=== PATIENT | male | born 1990 | race Caucasian/White ===

== ENCOUNTER 2020-05-24 08:08 | Inpatient (IN) | payer OTHER ==
[2020-05-24] MEDS ORDERED: Lorazepam 2 MG/ML VIAL ONE ×2 (08:42→10:17)
--- NOTE | 2020-05-24 09:05 | RAD ---
Portable frontal chest radiograph: 05/24/2020 COMPARISON: 01/10/2019 HISTORY: Chest pain FINDINGS: Lungs are clear. Heart and mediastinal contours appear within normal limits. IMPRESSION: No acute findings.
[2020-05-24 09:09] LABS: ALT (SGPT) 40 U/L (8-55); AST (SGOT) 96 U/L (5-34); Albumin 4.2 g/dL (3.5-5.0); Alkaline Phosphatase 68 U/L (40-110); Anion Gap 17 mmol/L (10-20); BUN (Urea Nitrogen) 8 mg/dL (8.9-20.6); Bilirubin, Total 1.7 mg/dL (0.2-1.2); Calc. Creatinine Clearance 0 mL/min (70-130); Calcium 9.4 mg/dL (7.8-10.44); Carbon Dioxide 23 mmol/L (22-29); Chloride 97 mmol/L (98-107); Estimated GFR-MDRD 74; Globulin 3.2 g/dL (2.4-3.5); Glucose 162 mg/dL (70-105); Protein, Total 7.4 g/dL (6.0-8.3); Sodium 134 mmol/L (136-145)
[2020-05-24 09:10] LABS: #Basophils 0.1 thou/uL (0.0-0.2); #Eosinphils 0.1 thou/uL (0.0-0.7); #Lymphocytes 1.5 thou/uL (1.20-3.40); #Monocytes 0.6 thou/uL (0.11-0.59); #Neutrophils 3.7 thou/uL (1.40-6.50); %Basophils 0.9 % (0.0-1.0); %Eosinophils 2.2 % (0.0-10.0); %Lymphocytes 24.8 % (21.0-51.0); %Neutrophils 62.1 % (42.0-75.0); Hemoglobin 15.9 g/dL (14.0-18.0); Mean Corpuscular HGB CONC 34.8 g/dL (32.0-36.0); Mean Corpuscular Hemoglobin 31.3 pg (27.0-31.0); Mean Corpuscular Volume 89.9 fL (78.0-98.0); Mean Platelet Volume 7.9 fL (7.4-10.4); Platelet Count 80 thou/uL (130-400); Platelet Morphology Comment Appears Decreased; RBC Distribution Width 13.9 % (11.5-14.5); RBC Morphology Normal; Red Blood Cell (RBC) Count 5.09 mill/uL (4.70-6.10)
[2020-05-24 09:16] LABS: Acetaminophen Less than 6.0 mcg/mL (10.0-30.0); Alcohol Less than 10 mg/dL (Less than 10); Salicylate Less than 8.0 mg/dL (15.0-30.0)
[2020-05-24 09:28] LABS: Magnesium 0.9 mg/dL (1.6-2.6)
[2020-05-24] MEDS ORDERED: Multivitamins, Adult 10 ML, Thiamine HCl 100 MG, Folic Acid 1 MG in Dextrose 5 %-0.45 %... IV SCH (09:30)
[2020-05-24] MEDS ORDERED: Magnesium 2 GM/50 ML BAG (IN WATER) ONE ×2 (09:32→10:44)
[2020-05-24] MEDS ORDERED: Lorazepam 2 MG/ML VIAL SLOW IVP PRN (10:34)
[2020-05-24] MEDS ORDERED: Potassium Chloride 20 MEQ TAB ONE (10:44)
[2020-05-24 11:27] LABS: Amphetamine Not Detected (NotDetected); Barbiturates Screen Not Detected (NotDetected); Benzodiazepine Screen Not Detected (NotDetected); Cocaine Metabolite Screen Not Detected (NotDetected); Medtox Control Line Valid? VALID (VALID); Medtox Reader # READER 4; Methadone Not Detected (NotDetected); Methamphetamine Not Detected (NotDetected); Opiate Screen Not Detected (NotDetected); Oxycodone Screen Not Detected (NotDetected); Phencyclidine (PCP) Not Detected (NotDetected); THC/Cannabinoid Screen Not Detected (NotDetected); Tricyclic Screen Not Detected (NotDetected)
--- NOTE | 2020-05-24 12:27 | PDOC.HHP ---
Hospitalist HPI - History of Present Illness palpitations History of Present Illness: Mr. Perales is a 30 year-old male with a PMHx of PTSD, anxiety, alcohol dependence disorder, who presents for acute anxiety, palpitations, and chest pain. Pt reports that this morning while getting ready for work he experienced tremors, his heart skipping beats, and an intense feeling of anxiety. Pt normally consumes about 5 etoh drinks a day and stopped consuming etoh 48 hrs prior to admission. He denies any history of prior withdrawal symptoms, although admits he will sometimes get shaky and need a drink. Denies any history of seizures or prior hospitalizations for withdrawal. Pt denies SOB, neurologic deficits. Denies any cardiac history, but does note a family history significant for his father with an CA at age 45. Pt is a non-smoker. His medical care is thorough the [place] and does report that he has undergone a substance abuse program twice previously. He is open to options about substance abuse treatment. In the ED, initial vital signs 170/20, HR 138, RR 14, Temp 99.8, 96% on RA. Workup included EKG which showed sinus tachycardia, but no ischemic changes. Troponin was 0.022. Labs notable for Mg of 0.9, Na 134, K+ 3.0. BUN/Cr 8/1.14, t. bili 1.7, and AST/ALT 96/40. TSH wnl at 4.817. Pt received 2g of Mg, 40 meq of K, ativan 1 mg x2, and a banana bag in the ED. Pt appropriate for transfer to medical floor and admitted under hospital medicine. Hospitalist ROS - Review of Systems Constitutional: denies: fever, chills, sweats, weakness, malaise, other Eyes: denies: pain, vision change, conjunctivae inflammation, eyelid inflammation, redness, other ENT: denies: nose discharge, nose congestion, mouth pain, throat pain, throat swelling Respiratory: denies: cough, dry, shortness of breath, hemoptysis, SOB with excertion, pleuritic pain, sputum, wheezing, other Cardiovascular: reports: chest pain, palpitations. denies: orthopnea, paroxysmal noc. dyspnea, edema, light headedness, other Gastrointestinal: denies: nausea, vomiting, abdominal pain, diarrhea, constipation, melena, hematochezia, other Genitourinary: denies: dysuria, frequency, incontinence, hematuria, retention, other Musculoskeletal: denies: neck pain, shoulder pain, arm pain, back pain, hand pain, leg pain, foot pain, other Skin: denies: rash, lesions, priscilla, bruising, other Neurological: denies: weakness, numbness, incoordination, change in speech, confusion, seizures, other Other: anxiety - Medication Medications: Pt's home medications include: 1. Hydroxazine 50 mg BID PRN 2. Trazodone 100 mg QHS PRN 3. Pantoprazole 20 mg qd 4. Buproprion 300 mg daily In ED received: Drug Name Dose Ordered Route Status Time *magnesium sulfate in water 2 g IV Piggy Back Given 10:50 05/24/2020 potassium chloride oral 40 mEq Oral Given 10:50 05/24/2020 LORazepam injection 1 mg IV Push Given 10:23 05/24/2020 *BANANA BAG 1 L IV Fluid Infusion Given 10:02 05/24/2020 *sodium chloride 0.9 % intravenous 1 L IV Fluid Infusion Given 10:01 05/24/2020 *magnesium sulfate in water 2 g IV Piggy Back Given 10:00 05/24/2020 LORazepam injection 1 mg IV Push Given 09:00 Hospitalist History - Past Medical History Cardiac: reports: no pertinent history Pulmonary: reports: no pertinent history [employer]: reports: no pertinent history Gastrointestinal: reports: GERD Heme/Onc: reports: no pertinent history Hepatobiliary: reports: no pertinent history Psych: reports: Anxiety, Panic, Other (PTSD, war ) Musculoskeletal: reports: no pertinent history Rheumatologic: reports: no pertinent history Infectious Disease: reports: no pertinent history ENT: reports: no pertinent history Renal/: reports: no pertinent history Endocrine: reports: no pertinent history Dermatology: reports: no pertinent history - Past Surgical History Other Surgical History: s/p vasectomy, lipoma removal - Family History Family History: reports: cardiac disorder Other Family History: Father with CA at age 45 Grandfather with CA at age 70 No family hx of cancer, or dm - Social History Smoking Status: Never smoker Alcohol: reports: Heavy (5 drinks/day) Drugs: reports: none Living Situation: With Family (with fiancee) Occupation: Works at [employer] Activity level: independent ambulation - Exam General Appearance: NAD, awake alert Eye: anicteric sclera ENT: normocephalic atraumatic, no oropharyngeal lesions, moist mucosa Neck: supple, symmetric, no JVD, no thyromegaly, no lymphadenopathy, no carotid bruit Heart: RRR, no murmur, no gallops, no rubs, normal peripheral pulses Respiratory: CTAB, no wheezes, no rales, no ronchi, normal chest expansion, no tachypnea, normal percussion Gastrointestinal: soft, non-tender, non-distended, normal bowel sounds, no palpable masses, no hepatomegaly, no splenomegaly, no bruit Extremities: no cyanosis, no clubbing, no edema Skin: normal turgor, no lesions, no rashes Neurological: cranial nerve grossly intact, normal sensation to touch, no weakness, no focal deficits, no new deficit Musculoskeletal: normal tone, normal strength, no muscle wasting Psychiatric: normal affect, normal behavior, A&O x 3 Psychiatric - other findings: mild tremor Hospitalist Results - Labs Result Diagrams: 05/24/20 08:25 05/24/20 08:25 Lab results: WBC 6.0 thou/uL (4.8-10.8) 05/24/20 08:25 Hgb 15.9 g/dL (14.0-18.0) 05/24/20 08:25 Hct 45.8 % (42.0-52.0) 05/24/20 08:25 MCV 89.9 fL (78.0-98.0) 05/24/20 08:25 Plt Count 80 thou/uL (130-400) L 05/24/20 08:25 Neutrophils % 62.1 % (42.0-75.0) 05/24/20 08:25 Sodium 134 mmol/L (136-145) L 05/24/20 08:25 Potassium 3.0 mmol/L (3.5-5.1) L 05/24/20 08:25 Chloride 97 mmol/L (98-107) L 05/24/20 08:25 Carbon Dioxide 23 mmol/L (22-29) 05/24/20 08:25 BUN 8 mg/dL (8.9-20.6) L 05/24/20 08:25 Creatinine 1.14 mg/dL (0.7-1.3) 08/26/20 08:25 Glucose 162 mg/dL (70-105) H 05/24/20 08:25 Calcium 9.4 mg/dL (7.8-10.44) 05/24/20 08:25 Total Bilirubin 1.7 mg/dL (0.2-1.2) H 05/24/20 08:25 AST 96 U/L (5-34) H 05/24/20 08:25 ALT 40 U/L (8-55) 05/24/20 08:25 Alkaline Phosphatase 68 U/L (40-110) 05/24/20 08:25 Troponin I 0.022 ng/mL (< 0.028) 05/24/20 08:25 Serum Total Protein 7.4 g/dL (6.0-8.3) 05/24/20 08:25 Albumin 4.2 g/dL (3.5-5.0) 05/24/20 08:25 - EKG Interpretation EKG: Sinus tach, no ischemic changes. Hospitalist H&P A/P - Problem (1) Chest pain Code(s): R07.9 - CHEST PAIN, UNSPECIFIED Status: Acute (2) Palpitations Code(s): R00.2 - PALPITATIONS Status: Acute (3) Alcohol withdrawal Code(s): F10.239 - ALCOHOL DEPENDENCE WITH WITHDRAWAL, UNSPECIFIED Status: Acute (4) Hypomagnesemia Code(s): E83.42 - HYPOMAGNESEMIA Status: Acute (5) Hypokalemia Code(s): E87.6 - HYPOKALEMIA Status: Acute - Plan Plan: Chest pain and palpitations: P/w palpitations, chest pain, and anxiety 48 hours after last drink. EKG showed sinus tach with non-specific t-wave abnl. Initial troponin 0.022. Pt does have a family history of early heart disease in his father with an CA at 45. Chest pain most likely 2/2 etoh withdrawal and anxiety. Denies chest pain or palpitations currently. TSH wnl. Pt with hypomagnesmeia and hypokalemia. Will replete and monitor on telemetry. -Trend troponin -Telemetry -Monitor and replete electrolytes Alcohol Withrawal: Hx of etoh abuse with prior [facility]. Pt reports 5 drinks/day. 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 Received 1 mg ativan x2 in ED. Symptoms now improved. Mild tremor. AST/ALT 96/40. T-jaime 1.7. Utox negative for any other substances. -Alcohol withdrawal protocol -Lorazepam for withdrawal symptoms -Initial dose of librium given -Thiamine, folate, multivitamin daily -Trend CMP -Pt amenable to substance abuse programs at the [place] Hypomagnesmia/Hypokalemia: Mg of 0.09, K of 3.0. Pt received 2 g Mg in ED and 40 meq of K+ in ED. Likely 2/ 2 etoh use. -Mg 2 grams -K+ 40 meq -Telemetry monitoring -Monitor and replete as needed PTSD/Anxiety: Pt on home hydroxazine, wellbutrin, and trazodone. Will hold since wellbutrin decreases seizure threshold. Receiving Ativan per [facility] protocol. GERD: On home pantoprazole. Will continue as inpatient. -Protonix 40 mg PO daily DVT prophlyaxis: SCD boots, encourage ambulation Full code All imaging reviewed by me. Case discussed with attending physician, Dr. Foster.
[2020-05-24] MEDS ORDERED: Ondansetron PF 4 MG/2 ML Vial IVP PRN (13:20)
[2020-05-24 14:25] LABS: PTT 24.4 sec (22.9-36.1); Prothrombin Time 13.3 sec (12.0-14.7)
[2020-05-24 16:12] VITALS: BMI 30.1
[2020-05-24] MEDS: chlordiazePOXIDE HCl 5 MG CAP PO SCH ×2 (17:47→21:40)
[2020-05-24] MEDS ORDERED: traZODone HCl 50 MG TAB PO SCH (22:30)
[2020-05-25 04:28] LABS: #Basophils 0.1 thou/uL (0.0-0.2); #Eosinphils 0.2 thou/uL (0.0-0.7); #Lymphocytes 1.5 thou/uL (1.20-3.40); #Monocytes 0.7 thou/uL (0.11-0.59); #Neutrophils 3.5 thou/uL (1.40-6.50); %Basophils 1.5 % (0.0-1.0); %Eosinophils 2.8 % (0.0-10.0); %Lymphocytes 25.8 % (21.0-51.0); Hemoglobin 14.4 g/dL (14.0-18.0); Mean Corpuscular HGB CONC 34.5 g/dL (32.0-36.0); Mean Corpuscular Hemoglobin 32.3 pg (27.0-31.0); Mean Corpuscular Volume 93.7 fL (78.0-98.0); Phosphorus 2.7 mg/dL (2.3-4.7); Platelet Count 74 thou/uL (130-400); RBC Distribution Width 14.3 % (11.5-14.5); Red Blood Cell (RBC) Count 4.48 mill/uL (4.70-6.10); White Blood Cell (WBC) Count 5.9 thou/uL (4.8-10.8)
[2020-05-25 04:41] LABS: ALT (SGPT) 32 U/L (8-55); AST (SGOT) 70 U/L (5-34); Albumin 3.9 g/dL (3.5-5.0); Alkaline Phosphatase 62 U/L (40-110); Anion Gap 10 mmol/L (10-20); BUN (Urea Nitrogen) 7 mg/dL (8.9-20.6); Bilirubin, Total 1.1 mg/dL (0.2-1.2); Calc. Creatinine Clearance 144 mL/min (70-130); Calcium 8.6 mg/dL (7.8-10.44); Carbon Dioxide 26 mmol/L (22-29); Chloride 102 mmol/L (98-107); Estimated GFR-MDRD 88; Glucose 128 mg/dL (70-105); Magnesium 1.9 mg/dL (1.6-2.6); Potassium 3.4 mmol/L (3.5-5.1); Protein, Total 6.9 g/dL (6.0-8.3); Sodium 135 mmol/L (136-145)
[2020-05-25 08:21] VITALS: TEMP 96.9
[2020-05-25] MEDS: chlordiazePOXIDE HCl 5 MG CAP PO SCH ×2 (09:29→11:52)
[2020-05-25] MEDS ORDERED: Potassium Chloride 20 MEQ TAB PO SCH (09:30)
[2020-05-25 11:47] VITALS: BP 127/92
[2020-05-25 13:25] LABS: SARS-CoV-2 MS2 Positive; SARS-CoV-2 N Gene Negative; SARS-CoV-2 S Gene Negative; SARS-CoV-2 by NAA Not Detected (NotDetected); SARS-CoV-2 orf1ab Negative
[2020-05-25] MEDS ORDERED: traZODone HCl 50 MG TAB PO SCH (21:00)
--- NOTE | 2020-05-27 13:07 | EKG ---
Test Reason : Blood Pressure : / mmHG Vent. Rate : 132 BPM Atrial Rate : 132 BPM P-R Int : 146 ms QRS Dur : 088 ms QT Int : 296 ms P-R-T Axes : 049 067 011 degrees QTc Int : 438 ms Sinus tachycardia Nonspecific ST abnormality Abnormal ECG Confirmed by JOSIAH OLIVAREZ ([id number]), video editor SHELDON HOLCOMB ([id number]) on 05/27/2020 1:06:57 PM Referred By: Confirmed By:JOSIAH OLIVAREZ
== END 2020-05-25 12:00 | disposition home or self-care (01) | DRG 897 ==
LOC: ERS 08:08 → IMCU/EMU 15:41
PROVIDERS: ADMIT Internal Medicine; ATTEND Internal Medicine
PROC: HZ2ZZZZ Detoxification Services for Substance Abuse Treatment (ICD-10-PCS; principal; 2020-05-24)
DX: F10.239 Alcohol dependence with withdrawal, unspecified (principal); Z20.828 Contact with and (suspected) exposure to other viral communicable diseases; E83.42 Hypomagnesemia; E87.6 Hypokalemia; R00.2 Palpitations; F41.9 Anxiety disorder, unspecified; F43.10 Post-traumatic stress disorder, unspecified; K21.9 Gastro-esophageal reflux disease without esophagitis; Y90.0 Blood alcohol level of less than 20 mg/100 ml
CPT/HCPCS: 36415; 71045; 80053; 80306; 80307; 82553; 83735; 84100; 84443; 84484; 85025; 85610; 85730; 87635; 93005; J2060; J3411; J3475; J7042; U0003